=== PATIENT | male | born 1980 | race Caucasian/White ===

== ENCOUNTER 2020-07-23 01:55 | Emergency (ER) | payer BC ==
[2020-07-23 02:03] VITALS: BP 142/94; PULSE 88; TEMP 98.2; BMI 25.8
[2020-07-23] MEDS ORDERED: LIDOCAINE HCL 1%, 10 MG/ML (20ML VIAL) ONE (02:13)
[2020-07-23] MEDS ORDERED: CEPHALEXIN MONOHYDRATE 500 MG CAPSULE (UD) ONE (02:25)
[2020-07-23] MEDS ORDERED: LIDOCAINE HCL 2% (50ML VIAL) INF ONE (02:26)
[2020-07-23] MEDS ORDERED: CEPHALEXIN MONOHYDRATE 500 MG CAPSULE (UD) PO ONE (02:26)
[2020-07-23] MEDS ORDERED: IBUPROFEN 400 MG TABLET (FP) PO ONE ×2 (02:36→02:38)
== END 2020-07-23 02:40 | disposition home or self-care (01) ==
LOC: FER 01:55
PROC: 0H94XZZ Drainage of Neck Skin, External Approach (ICD-10-PCS; principal; 2020-07-23)
DX: L02.11 Cutaneous abscess of neck (principal)
CPT/HCPCS: 99284-25

== ENCOUNTER 2020-09-13 14:03 | Emergency (ER) | payer BC ==
[2020-09-13 14:44] VITALS: BMI 25.8
[2020-09-13 16:32] LABS: BASO % 0.9 % (0-2.0); EOS % 3.7 % (0-4.5); HEMATOCRIT 48.3 % (35.4-49); HEMOGLOBIN 16.6 GM/dL (11.7-16.9); LYMPH % 19.6 % (8-40); MCHC 34.3 g/dl (32.0-35.9); MEAN CELL VOLUME 96.1 fl (80-96); MEAN PLT VOLUME 8.5 fl (7.5-11.1); MONO % 12.4 % (3.8-10.2); NEUT % 63.4 % (42.8-82.8); PLATELET COUNT 357 10^3/uL (134-434); RBC 5.02 M/mm3 (4.00-5.60); WHITE BLOOD COUNT 7.6 K/mm3 (4.0-10.0)
[2020-09-13 16:56] LABS: CALCIUM 9.4 mg/dL (8.5-10.1)
[2020-09-13 16:57] LABS: ALBUMIN 4.3 g/dl (3.4-5.0); BLOOD UREA NITROGEN 12.9 mg/dL (7-18)
[2020-09-13 17:00] LABS: CREATININE 0.9 mg/dL (0.55-1.3)
[2020-09-13 17:01] LABS: BILIRUBIN,TOTAL 0.4 mg/dL (0.2-1); TOT PROT 7.6 g/dl (6.4-8.2)
[2020-09-13] MEDS ORDERED: CASIRIVIMAB (REGN10933) 600 MG, IMDEVIMAB (REGN10987) 600 MG in SODIUM CHLORIDE 100 ML IVPB ONE (17:03)
[2020-09-13 17:37] LABS: ANISOCYTOSIS 0; MACROCYTOSIS 0; PLATELET ESTIMATE NORMAL
[2020-09-13 20:39] VITALS: BP 126/82; PULSE 86; TEMP 98.3
== END 2020-09-13 20:38 | disposition home or self-care (01) ==
LOC: JCOVINFU 14:03
DX: U07.1 COVID-19 (principal); Z11.52 Encounter for screening for COVID-19
CPT/HCPCS: 36415; 80053; 85025; 99284-25; C9803; M0243; Q0243; U0003; U0005

== ENCOUNTER 2020-10-04 22:21 | Emergency (ER) | payer BC ==
[2020-10-04 22:27] VITALS: BP 140/90; PULSE 84; TEMP 99; BMI 25.8
[2020-10-04] MEDS ORDERED: SULFAMETHOXAZOLE/TRIMETHOPRIM 800MG/160MG D.S. TABLET PO ONE (22:40)
[2020-10-04] MEDS ORDERED: SULFAMETHOXAZOLE/TRIMETHOPRIM 800MG/160MG D.S. TABLET ONE (22:43)
== END 2020-10-04 22:48 | disposition home or self-care (01) ==
LOC: FER 22:21
DX: S81.802A Unspecified open wound, left lower leg, initial encounter (principal); L03.116 Cellulitis of left lower limb; Y99.8 Other external cause status
CPT/HCPCS: 99283-25

== ENCOUNTER 2022-05-09 02:56 | Emergency (ER) | payer BC ==
[2022-05-09 03:08] VITALS: BP 137/94; PULSE 97; RESP 18; TEMP 97.9; BMI 25.8
[2022-05-09] MEDS ORDERED: LIDOCAINE VISCOUS 2% ORAL/TOP 15 ML UNIT-DOSE CUP MM ONE ×2 (04:02→04:41)
[2022-05-09] MEDS ORDERED: BUPIVACAINE 0.5% /EPI 1:200,000 10 ML VIAL IJ ONE (04:08)
[2022-05-09] MEDS ORDERED: LIDOCAINE VISCOUS 2% ORAL/TOP 15 ML UNIT-DOSE CUP ONE (04:19)
[2022-05-09] MEDS ORDERED: BUPIVACAINE HCL/PF 0.5% (5MG/ML) 10 ML VIAL ONE (04:19)
[2022-05-09] MEDS ORDERED: BUPIVACAINE HCL/PF 0.5% (5 MG/ML) 30 ML VIAL IJ ONE (04:20)
== END 2022-05-09 04:54 | disposition home or self-care (01) ==
LOC: JER 02:56
DX: K08.89 Other specified disorders of teeth and supporting structures (principal)
CPT/HCPCS: 99283-25